=== PATIENT | female | born 1955 | race Hispanic/Latino ===

== ENCOUNTER 2016-12-31 13:42 | Outpatient (CLI) | payer MEDICARE ==
[2016-12-31] MEDS ORDERED: NACL ONE (15:23)
--- NOTE | 2017-01-01 14:42 | Cat Scan Report ---
CTA NECK INDICATION: Occlusion and stenosis of bilateral carotid arteries, atherosclerosis. COMPARISON: None similar. FINDINGS: Neck CTA performed following IV contrast. Axial, sagittal, coronal and computer-generated MIP reconstructions obtained. Aortic arch not included. Streak artifact from contrast also partly limits exam and evaluation of small segment of the right proximal CCA as on axial series 2, images 1-15, not reliably differentiated artifactual versus stenosis. Patent bilateral subclavian arteries, to the extent assessed. Atherosclerotic calcifications at the origin of the left vertebral artery and along the left proximal CCA partially imaged. Mild to moderate diffuse bilateral common carotid atherosclerotic changes noted, including calcifications and intimal thickening, greater distally and most about the carotid bulbs. Maximum stenosis/caliber reduction suspected about the right mid to distal CCA and estimated at 60-70%. Approximately 70-80% narrowing at the right carotid bulb and 60-70% narrowing at the left carotid bulb may also be present. Mild medial deviation of the right internal carotid artery noted as on axial series 3, image 43, amongst others. No significant extracranial ICA stenosis suspected with some calcification about the right skull base possible, axial image 62. Intracranial cavernous ICA calcifications also noted, though patent as also imaged [place]. Mild right vertebral artery calcifications also noted. Approximately 60-70% stenosis at the right vertebral artery origin versus artifactual, coronal image 43, series 201. Left vertebral artery slightly larger than the right and both noted patent. Normal thyroid. Clear lung apices. Few radiopaque dental fillings. Maxilla appears edentulous. Clear imaged paranasal sinuses and mastoid air cells. Rightward nasal septal deviation. Cervical spondylosis with mild degenerative spurring greatest about C4 and C5. CONCLUSION: 1. Bilateral atherosclerotic changes noted, greatest along the common carotid arteries extending to the carotid bulbs with approximately 60-80% range stenosis suspected, right greater than left, as detailed above. Please also correlate clinically and further with carotid duplex, as warranted. 2. Nonspecific incompletely imaged right proximal CCA and right proximal vertebral artery CT appearances, not entirely excluded artifactual. 3. Various other findings, as above. Thank you for the opportunity to participate in this patient's care.
== END 2016-12-31 13:43 | disposition home or self-care (01) ==
LOC: CT 13:42
PROVIDERS: ATTEND Surgery Vascular Surgery
DX: I65.23 Occlusion and stenosis of bilateral carotid arteries (principal); I70.218 Atherosclerosis of native arteries of extremities with intermittent claudication, other extremity; J34.2 Deviated nasal septum; M47.892 Other spondylosis, cervical region
CPT/HCPCS: 36415; 70498; 82565; 84520; Q9967

== ENCOUNTER 2021-04-30 12:55 | Outpatient (CLI) | payer MEDICARE ==
--- NOTE | 2021-04-30 14:27 | XRay Report ---
CHEST 2 VIEWS INDICATION: WHEEZING R06.2. COMPARISON: 10/05/2018 FINDINGS: Support devices: None. Heart: Normal heart size. Previous sternotomy is noted. Multiple fractured sternotomy wires. Lungs/pleura: Interstitial markings in both lungs are slightly prominent but no evidence for acute in filtrate, pleural effusion or pneumothorax. Additional findings: None. IMPRESSION: Mild chronic interstitial changes as described. No acute process noted. No significant change since 1 12/06/2017. Signer Name: Андрей Glaser Jr, MD Signed: 04/30/2021 2:22 PM Workstation Name: [id number]
== END 2021-04-30 12:56 | disposition home or self-care (01) ==
LOC: SPVIMAG 12:55
PROVIDERS: ATTEND Internal Medicine
DX: R91.8 Other nonspecific abnormal finding of lung field (principal); R06.2 Wheezing
CPT/HCPCS: 71046